=== PATIENT | male | born 1955 | race Caucasian/White ===

== ENCOUNTER 2021-07-15 15:40 | Emergency (ER) | payer OTHER, SELFPAY ==
[2021-07-15 15:42] VITALS: BP 140/96; PULSE 95; RESP 14; TEMP 36.7; O2SAT 99; BMI 28.0
[2021-07-15 16:24] VITALS: BP 139/80; PULSE 89; RESP 17; TEMP 36.8; O2SAT 97
[2021-07-15 16:41] LABS: Absolute Lymphocyte Count 1.71 X10^3/uL (0.83-4.51); Absolute Neutrophil Count 4.9 X10^3/uL (2.0-7.7); Basophil# 0.04 X10^3/uL; Basophil% 0.6 % (0-1); Eosinophil# 0.09 X10^3/uL; Eosinophils% 1.2 % (0-5); Hematocrit 32.9 % (40-54); Hemoglobin 11.4 g/dL (13.0-16.5); Lymphocyte # 1.71 X10^3/ul (0.83-4.51); Lymphocyte % 23.6 % (19-41); Mean Corp Hgb Conc 34.7 g/dL (32-36); Mean Corpuscular Hgb 29.3 pg (27.0-32.0); Mean Corpuscular Volume 84.6 fL (80-94); Mean Platelet Vol. 11.1 fl (6.2-12.0); Monocyte# 0.53 X10^3/uL; Monocyte% 7.3 % (0-10); NRBC Flagged by Analyzer 0 % (0-5); Neutrophil # 4.87 X10^3/uL (2.7-7.7); Platelet Count 212 K/mm3 (150-450); RBC Distribution Width CV 13.2 % (11.6-14.6); RBC Distribution Width SD 40.9 fl (35.1-43.9); Red Blood Count 3.89 M/mm3 (4.6-6.2); White Blood Count 7.3 K/mm3 (4.4-11.0)
[2021-07-15 16:42] LABS: Anion Gap 3 (5-15); BUN 20 mg/dL (7-18); Calcium,Total 9.1 mg/dL (8.5-10.1); Chloride 108 mmol/L (98-107); Creatinine, Serum 1.11 mg/dL (0.70-1.30); EST Glomerular Filtration Rate 71 mL/min (>60); Est Glom Filt Rate - Afr Amer 86 mL/min (>60); Estimated Creatinine Clearance 80.36 ml/min; Glucose 348 mg/dL (74-106); Sodium Level 138 mmol/L (136-145)
--- NOTE | 2021-07-15 16:57 | ED.VIS.GI ---
HPI HPI - GI History of Present Illness Chief Complaint: GI Bleed Informant: patient Abdominal Pain/Flank Pain Current Severity: 0/10 Maximum Severity: 0/10 Diarrhea/Melena/Hematochezia GI Symptom: Positive for Diarrhea and Hematochezia Onset: Days (3) Stool Quality: Positive for Loose and BRB per rectum Associated Symptoms Associated Symptoms: Negative for Dysuria, Frequency, Hematuria and Urgency Narrative Narrative: For the past 3 days patient has had bloody bowel movements. He had 1 bout 2 or 3 days ago, another one the next day, and today it was just blood and no bowel movement. He states he was having some stool with the blood for the past couple days but only once per day. The end of the first day he felt lightheaded and checked his blood pressure and it was in the 90s. That has not recurred, he has had no near syncope or syncope. No abdominal pain, nausea, vomiting, fevers. He had a colonoscopy 2015 that showed diverticulosis. 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 He is on no anticoagulants. [facility] Medical History Abnormal colonoscopy Diabetes Disc herniation Diverticulitis Home Medications Adderall 07/15/21 [History Last Taken Unknown] atorvastatin 07/15/21 [History Last Taken Unknown] naproxen 07/15/21 [History Last Taken Unknown] Allergy/AdvReac Type Severity Reaction Status Date / Time No Known Allergies Allergy Verified 07/15/21 15:43 Family History no significant family his Social History Smoking Status: Never smoker alcohol intake: former ROS ROS ED Constitutional Constitutional ED: Denies chills or fever(s) Eyes Eyes: Denies change in vision or diplopia ENT ENT ED: Denies rhinorrhea or sore throat Cardiovascular Cardiovascular: Denies chest pain or palpitations Respiratory/Chest Respiratory/Chest: Denies cough or dyspnea Gastrointestinal Gastrointestinal: Reports diarrhea and hematochezia; Denies abdominal pain, nausea or vomiting Genitourinary Genitourinary ED: Denies dysuria or hematuria Musculoskeletal Musculoskeletal: Reports extremity pain; Denies back pain or neck pain Integumentary Denies abscess or rash Neurologic Neurologic: Reports paresthesias; Denies headache(s) or weakness Psychiatric Psychiatric: Denies anxiety or suicidal thoughts EXAM Physical Exam Const Vital Signs: 07/15/21 15:42 07/15/21 16:24 07/15/21 16:59 Temperature 98.1 F 98.3 F Temperature Source Temporal Oral Pulse Rate 95 89 Pulse Rate [Lying] 88 Pulse Rate [Sitting (for 1 minute prior to obtaining)] 87 Pulse Rate [Standing (for 1 minute prior to obtaining)] 95 Respiratory Rate 14 17 Blood Pressure 140/96 H 139/80 H Blood Pressure [Lying] 129/76 H Blood Pressure [Sitting (for 1 minute prior to obtaining)] 150/79 H Blood Pressure [Standing (for 1 minute prior to obtaining)] 137/79 H Blood Pressure Mean 110 99 Blood Pressure Mean [Lying] 93 Blood Pressure Mean [Sitting (for 1 minute prior to obtaining)] 102 Blood Pressure Mean [Standing (for 1 minute prior to obtaining)] 98 Pulse Ox 99 97 Oxygen Delivery Method Room Air Room Air Positive well nourished and well developed General Appearance ED: well developed and NAD HEENT Reports moist mucous membranes normocephalic and atraumatic Eyes PERRL and EOMs intact bilaterally Neck full ROM and supple Resp normal respiratory effort and clear to auscultation bilaterally Cardio regular rate, regular rhythm and no murmurs GI non-tender and non-distended Auscultation: normoactive bowel sounds Palpation: soft Back/Spine no CVA tenderness General Back: other FROM Extremity normal to inspection General Extremety ED: Negative for edema, pulses abnormal or tenderness General Extremity: Negative for edema or pulses abnormal Neuro oriented x3, CN's II-XII intact bilaterally and no sensory deficits noted Sensorium / Orientation: awake and alert Motor Exam: strength 5/5 throughout Skin no rashes or lesions noted and no wounds MDM MDM MDM Narrative Medical decision making narrative: Patient BUN is slightly elevated and his hemoglobin is 11.4 without any prior readings here, his glucose is 348. He confirms that he is on glimepiride and has been compliant with it. With his BUN at 20, I do not think this is indicative of an upper GI bleed, his symptoms suggest a lower source. He was able to look up some labs from [facility], 2 months ago he had a hemoglobin that was over 15. He has had no rectal bleeding while here in the emergency department or other episodes of bowel movement/diarrhea. His orthostatics are normal. His blood pressure has remained stable. Certainly infectious diarrhea with the bleeding is in the differential but I think less likely due to lack of leukocytosis or left shift, and I discussed the concerned that his hemoglobin has dropped so much, and that with the diverticular bleeding, this can become life-threatening/severe. He understands that, and was offered admission which I recommend, however he wants to go home for financial reasons. He understands the danger and concern. I believe he has a capacity to make this decision, he is alert and oriented x3 and in no distress. 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 His hyperglycemia was treated with a dose of insulin here, and he was advised to avoid all NSAIDs including aspirin at this time. Lab Data Attestation: I reviewed the patient's lab results. Labs: Laboratory Results - last 24 hr 07/15/21 07/15/21 16:05 16:05 WBC 7.3 RBC 3.89 L Hgb 11.4 L Hct 32.9 L MCV 84.6 MCH 29.3 MCHC 34.7 RDW Std Deviation 40.9 RDW Coeff of [place] 13.2 Plt Count 212 MPV 11.1 Immature Gran % (Auto) 0.300 Neut % (Auto) 67.0 Lymph % (Auto) 23.6 [place] % (Auto) 7.3 Eos % (Auto) 1.2 Baso % (Auto) 0.6 Absolute Neuts (auto) 4.9 Absolute Lymphs (auto) 1.71 Nucleated RBC % 0 Sodium 138 Potassium 4.0 Chloride 108 H Carbon Dioxide 27.0 Anion Gap 3 L BUN 20 H Creatinine 1.11 Estim Creat Clear Calc 80.36 Est GFR (MDRD) Af Amer 86 Est GFR (MDRD) Non-Af 71 BUN/Creatinine Ratio 18.0 Glucose 348 H Calcium 9.1 Discharge Plan Triage Chief Complaint: GI Bleed ED Provider: Doug Kimble Dx/Rx/DC Orders Clinical Impression: Acute lower gastrointestinal bleeding, Hyperglycemia due to type 2 diabetes mellitus Instructions: ED Lower GI Bleeding (Stable) Prescriptions: No Action Adderall RF: 0 atorvastatin RF: 0 naproxen RF: 0 Primary Care Provider: Danielle Badillo Referrals: Danielle Badillo MD [Primary Care Provider] - As soon as possible (for GI referral) Friend,DO Camilo [STAFF PHYSICIAN] - As soon as possible Activity Restrictions/Additional Instructions: Do not take anymore aspirin or ibuprofen/NSAIDs Disposition Disposition: Home, Self Care Capacity Capacity Assessment Tool Can the patient make a choice & communicate that choice?: Yes Can the patient understand benefits, risks and alternatives?: Yes Can the patient make a logical, rational choice?: Yes Is the choice the patient makes consistent w/ their values?: Yes Is there an impending, emergent risk to the patient?: Yes Does the patient have an Advance Directive?: No Is there a Surrogate Available?: No
[2021-07-15 16:59] VITALS: BP 129/76; BP 137/79; BP 150/79; PULSE 87; PULSE 88; PULSE 95
[2021-07-15 17:35] VITALS: BP 146/94
[2021-07-15] MEDS: Insulin Lispro 100 UNIT/ML INSULN.PEN 10 UNIT SC (17:42)
== END 2021-07-15 17:45 | disposition home or self-care (01) ==
PROVIDERS: Emergency Provider Emergency Medicine; PCP Internal Medicine; Visit Provider Emergency Medicine
DX: K92.2 Gastrointestinal hemorrhage, unspecified (principal); E11.65 Type 2 diabetes mellitus with hyperglycemia; E11.40 Type 2 diabetes mellitus with diabetic neuropathy, unspecified; R19.7 Diarrhea, unspecified; K92.1 Melena; Z87.19 Personal history of other diseases of the digestive system; Z79.84 Long term (current) use of oral hypoglycemic drugs; Z79.899 Other long term (current) drug therapy
CPT/HCPCS: 80048; 85025; 99285; A4216

== ENCOUNTER → 2021-12-09 | Outpatient (CLI) | payer MEDICARE, OTHER, SELFPAY ==
--- NOTE | 2021-12-09 15:47 | STRESSREP_ITS ---
Stress Test Report Exercise stress test. 66-year-old male with a history of chest pain. Stress protocol: Resting EKG demonstrates normal sinus rhythm with a rate of 78 bpm normal intervals are noted resting blood pressure is 152/96 mmHg. The patient exercised according to regular Jayy protocol for total duration of 9 minutes. The maximum heart rate attained was 131 bpm which was 84% of max impacted heart rate the maximum workload was 10.4 metabolic equivalents. The patient maintained sinus rhythm throughout the recording. At rest there were no ST or T wave changes noted to suggest ischemia occasional premature ventricular complexes were noted the test was terminated due to attainment of target heart rate. No angina was noted the peak blood pressure was 174/88 mmHg with a rate- pressure product of 22,444. Conclusion: Exercise stress test with no EKG criteria for ischemia at a high workload. Good functional capacity. No arrhythmias noted. No angina present.
== END | disposition home or self-care (01) ==
PROVIDERS: PCP Internal Medicine; Referring Provider Nurse Practitioner; Visit Provider Nurse Practitioner
DX: R07.89 Other chest pain (principal); R68.89 Other general symptoms and signs; R29.898 Other symptoms and signs involving the musculoskeletal system; M54.9 Dorsalgia, unspecified
CPT/HCPCS: 93017